=== PATIENT | female | born 1955 | race Caucasian/White ===

== ENCOUNTER → 2021-03-24 | Day surgery (SDC) | payer MEDICARE, BC | LOC: CSHMAMMO 12:56 | PROVIDERS: ATTEND Family Medicine | PROC: 0H9T3ZX Drainage of Right Breast, Percutaneous Approach, Diagnostic (ICD-10-PCS; principal; 2021-03-24) | DX: D24.1 Benign neoplasm of right breast (principal); R92.1 Mammographic calcification found on diagnostic imaging of breast | CPT/HCPCS: 19081; 76098; 88305 ==

== ENCOUNTER 2022-01-17 09:24 | Outpatient (CLI) | payer MEDICARE, BC | END 2022-01-17 09:25 | disposition home or self-care (01) | LOC: CSHMRI 09:24 | PROVIDERS: ATTEND Orthopaedic Surgery | DX: M54.2 Cervicalgia (principal); M54.12 Radiculopathy, cervical region; M47.12 Other spondylosis with myelopathy, cervical region; G95.89 Other specified diseases of spinal cord | CPT/HCPCS: 72141 ==

== ENCOUNTER 2022-06-29 14:44 | Outpatient (CLI) | payer MEDICARE, BC | END 2022-06-29 14:45 | disposition home or self-care (01) | LOC: CSHMAMMO 14:44 | PROVIDERS: ATTEND Family Medicine | DX: Z12.31 Encounter for screening mammogram for malignant neoplasm of breast (principal); Z86.018 Personal history of other benign neoplasm | CPT/HCPCS: 77063; 77067 ==

== ENCOUNTER 2022-11-08 09:36 | Outpatient (CLI) | payer MEDICARE, BC | END 2022-11-08 09:37 | disposition home or self-care (01) | LOC: CSHRAD 09:36 | PROVIDERS: ATTEND Neurological Surgery | DX: M54.12 Radiculopathy, cervical region (principal); Z98.1 Arthrodesis status | CPT/HCPCS: 72040 ==

== ENCOUNTER 2023-07-12 15:17 | Outpatient (CLI) | payer MEDICARE, BC | END 2023-07-12 15:18 | disposition home or self-care (01) | LOC: CSHMAMMO 15:17 | PROVIDERS: ATTEND Family Medicine | DX: Z12.31 Encounter for screening mammogram for malignant neoplasm of breast (principal) | CPT/HCPCS: 77063; 77067 ==

== ENCOUNTER 2023-08-07 15:45 | Emergency (ER) | payer MEDICARE, BC ==
[2023-08-07 16:44] LABS: Bilirubin Neg (Negative); Blood, Urine Negative (Negative); Clarity Clear (Clear); Glucose, Urine (Dipstick) >=1000 mg/dL (Negative); Ketone, Urine 5 mg/dL (Negative); Leukocyte Negative (Negative); Nitrite Negative (Negative); Protein, Urine (Dipstick) Negative (Neg-Trace); Specific Gravity, Urine 1.015 (1.005-1.030); Urobilinogen Normal mg/dL (Less than 2)
[2023-08-07] MEDS ORDERED: Ketorolac Tromethamine 30 MG (1 mL) VIAL ONE (16:58)
[2023-08-07 16:59] LABS: Bacteria/HPF Rare-Few HPF (None Seen); CAUTI Indications for Culture Pelvic or flank pain; RBC/HPF None Seen HPF (0-3); Squamous Epithelial 0-3 HPF (0-3); WBC/HPF None Seen HPF (0-3)
[2023-08-07 17:01] LABS: Urine Culture Reflex No No
== END 2023-08-07 19:04 | disposition home or self-care (01) ==
LOC: CSHERS 15:45
DX: S29.9XXA Unspecified injury of thorax, initial encounter (principal); E11.9 Type 2 diabetes mellitus without complications; Z79.84 Long term (current) use of oral hypoglycemic drugs; X58.XXXA Exposure to other specified factors, initial encounter
CPT/HCPCS: 74176; 81001; J1885; 96372

== ENCOUNTER 2024-09-26 10:15 | Outpatient (CLI) | payer MEDICARE, BC ==
[2024-09-26 10:52] LABS: Estimated GFR - POC 61.0
== END 2024-09-26 10:16 | disposition home or self-care (01) ==
LOC: CSHMRI 10:15
PROVIDERS: ATTEND Family Medicine
DX: R92.30 Dense breasts, unspecified (principal); Z80.3 Family history of malignant neoplasm of breast
CPT/HCPCS: 36415; 82565 ×2; C8908